=== PATIENT | male | born 1945 | race Caucasian/White ===

== ENCOUNTER → 2018-05-29 08:01 | Outpatient (CLI) | payer MEDICARE, OTHER, SELFPAY ==
--- NOTE | 2018-05-29 | DI.MRI.S_ITS ---
PROCEDURE: MR KNEE LT WO CON INDICATIONS: LEFT KNEE PAIN TECHNIQUE: Noncontrast sagittal PD fast spin echo and T2 fast spin echo with fat saturation, sagittal 3-D FLASH with fat saturation; coronal T1 spin echo and PD fast spin echo with fat saturation, and axial PD fast spin echo with fat saturation through the knee. COMPARISON: None. FINDINGS: Image quality: Excellent. Menisci: Lateral meniscus appears intact. Complex macerated tear involving the posterior root, horn and body of the medial meniscus is seen. Cruciate ligaments: The anterior and posterior cruciate ligaments appear intact. Medial structures: The medial collateral ligament appears intact. The posterior oblique ligament, semimembranosus tendon insertions, oblique popliteal ligament, and meniscocapsular junction appear intact. Visualized portions of the pes anserinus tendons appear normal. No abnormal bursal fluid. Lateral structures: The lateral collateral ligament, long and short heads of the biceps femoris tendon appear intact. The popliteus tendon appears normal; the popliteofibular ligament appears intact. The posterosuperior and anteroinferior popliteomeniscal fascicles appear intact. The arcuate and fabellofibular ligaments appear intact, on either side of the lateral inferior geniculate artery. Iliotibial band appears normal. Anterior structures: The quadriceps tendon appears intact. There is thickening of the patellar tendon. Patellar alignment is normal. No femoral trochlear dysplasia or ventral trochlear prominence. No edema in the infrapatellar fat pad. Bones and cartilage: No bone marrow contusions or fractures. Within the medial compartment, there is diffuse partial-thickness loss of the femoral and tibial articular cartilage with near full-thickness involvement of the tibial cartilage peripherally. Within the lateral compartment, no definite focal articular cartilage defect is seen. Within the patellofemoral compartment, there's diffuse surface fraying of the patellar and femoral trochlear cartilage. Joint space: There is physiologic knee joint fluid. Small Wade's cyst. IMPRESSION: Poorly defined medial meniscal tear which involves the posterior root, horn and body. Patellar tendinopathy. Mild degenerative joint disease as above. Small Wade cyst. Dictated by: Parminder Goddard M.D. on 05/29/2018 at 15:06 Approved by: Parminder Goddard M.D. on 05/29/2018 at 15:18
== END ==
PROVIDERS: PCP Family Medicine; Visit Provider Orthopaedic Surgery
DX: S83.232A Complex tear of medial meniscus, current injury, left knee, initial encounter (principal); M25.562 Pain in left knee; M17.12 Unilateral primary osteoarthritis, left knee; M71.22 Synovial cyst of popliteal space [Baker], left knee; M67.864 Other specified disorders of tendon, left knee
CPT/HCPCS: 73721

== ENCOUNTER → 2020-06-07 11:19 | Outpatient (CLI) | payer MEDICARE, OTHER, SELFPAY ==
[2020-06-07 12:22] LABS: Alanine Aminotransferase 41 IU/L (<50); Albumin 4.2 g/dL (3.5-5.0); Albumin Globulin Ratio 1.4 (1.0-2.8); Alkaline Phosphatase 72 U/L (38-126); Aspartate Aminotransferase 41 IU/L (17-59); BUN Creatinine Ratio 26.1 (6-22); Bilirubin Total 0.8 mg/dL (0.2-1.3); Blood Urea Nitrogen 24 mg/dL (9-20); Calcium 9.1 mg/dL (8.4-10.2); Carbon Dioxide 27 mmol/L (22-32); Chloride 105 mmol/L (98-107); Cholesterol 138 mg/dL (140-199); Estimated Glomerular Filt Rate > 60.0 mL/min (>60); Glucose 89 mg/dL (80-110); HDL Cholesterol 32 mg/dL (40-60); HEMOLYSIS < 15 (0-50); LDL Cholesterol Calculated 87 mg/dL (<100); Potassium 4.4 mmol/L (3.4-5.1); Sodium 138 mmol/L (137-145); Total Protein 7.2 g/dL (6.3-8.2); Triglycerides 96 mg/dL (35-150)
== END ==
PROVIDERS: PCP Family Medicine; Referring Provider Internal Medicine Cardiovascular Disease; Visit Provider Internal Medicine Cardiovascular Disease
DX: Z13.220 Encounter for screening for lipoid disorders (principal); R00.2 Palpitations; I47.1 Supraventricular tachycardia; I49.3 Ventricular premature depolarization
CPT/HCPCS: 36415; 80053; 80061

== ENCOUNTER → 2022-05-02 17:52 | Outpatient (CLI) | payer MEDICARE, OTHER, SELFPAY ==
--- NOTE | 2022-05-02 | DI.MRI.S_ITS ---
PROCEDURE: MR ELBOW LT W CON INDICATIONS: Pain in left elbow TECHNIQUE: Noncontrast coronal proton density fast spin echo and T2 fast spin echo with fat saturation, axial and sagittal T1 spin echo and T2 fast spin echo with fat saturation through the elbow. COMPARISON: None. FINDINGS: Image quality: Excellent. Lateral structures: The lateral ulnar collateral ligament and radial collateral ligament both appear intact. The overlying common extensor tendon also appears normal. Medial structures: The ulnar collateral ligament appears thickened with intrasubstance T2 hyperintense signal. The overlying common flexor tendon also appears thickened with intrasubstance T2 hyperintense signal.. The ulnar nerve appears normal in size and signal within the cubital tunnel. Anterior structures: There is full-thickness rupture of distal biceps tendon at its insertion on proximal radius with up to 7.7 cm proximal retraction of torn tendon fibers and large amount of surrounding fluid. Ruptured lacertus fibrosus is also noted. The brachialis tendon is intact. The median and radial neurovascular bundles appear normal; no focal muscle atrophy to suggest nerve impingement. Posterior structures: The conjoint triceps tendon from the long and lateral heads appears intact. The medial head of the triceps tendon also appears normal, with direct muscle insertion onto the olecranon. No olecranon bursal fluid. Bone and cartilage: Elbow joint osteoarthritic changes are seen with joint space narrowing, subchondral sclerosis and marginal osteophyte formation. No bone marrow contusions or fractures. No osteochondral injuries. IMPRESSION: 1. Full-thickness rupture of distal biceps tendon at its insertion on proximal radius with up to 7.7 cm proximal retraction of torn tendon fibers and large amount of surrounding fluid. Suggestion of ruptured lacertus fibrosus. 2. Suggestion of mild medial epicondylitis with tendinosis and low-grade partial-thickness tear involving common flexor tendon origin and sprain/low-grade partial-thickness tear involving ulnar collateral ligament. 3. 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 No fracture or dislocation. Small amount of joint fluid. No osteochondral injuries. Dictated by: Gerardo Alanis M.D. on 05/03/2022 at 8:45 Approved by: Gerardo Alanis M.D. on 05/03/2022 at 8:53
== END ==
PROVIDERS: PCP Family Medicine; Referring Provider Orthopaedic Surgery; Visit Provider Orthopaedic Surgery
DX: S46.212A Strain of muscle, fascia and tendon of other parts of biceps, left arm, initial encounter (principal); M19.022 Primary osteoarthritis, left elbow; M25.522 Pain in left elbow
CPT/HCPCS: 73221

== ENCOUNTER → 2022-06-15 09:30 | Outpatient (CLI) | payer MEDICARE, OTHER, SELFPAY ==
[2022-06-15 12:47] LABS: BUN Creatinine Ratio 26.5 (6-22); Blood Urea Nitrogen 30 mg/dL (9-20); Carbon Dioxide 28 mmol/L (22-32); Chloride 105 mmol/L (98-107); Cholesterol 140 mg/dL (140-199); Estimated Glomerular Filt Rate > 60 mL/min (>60); Glucose 85 mg/dL (80-110); HDL Cholesterol 33 mg/dL (40-60); HEMOLYSIS < 15 (0-50); LDL Cholesterol Calculated 93 mg/dL (<100); Potassium 4.4 mmol/L (3.4-5.1); Sodium 139 mmol/L (137-145); Triglycerides 69 mg/dL (35-150)
== END ==
PROVIDERS: PCP Family Medicine; Referring Provider Nurse Practitioner Family; Visit Provider Nurse Practitioner Family
DX: I47.1 Supraventricular tachycardia (principal); I70.90 Unspecified atherosclerosis; R00.2 Palpitations; I49.3 Ventricular premature depolarization
CPT/HCPCS: 36415; 80048; 80061

== ENCOUNTER → 2024-06-20 09:57 | Outpatient (CLI) | payer MEDICARE, OTHER, SELFPAY ==
[2024-06-20 12:26] LABS: BUN Creatinine Ratio 22.7 (6-22); Blood Urea Nitrogen 25 mg/dL (9-20); Calcium 9.3 mg/dL (8.4-10.2); Carbon Dioxide 25 mmol/L (22-32); Chloride 106 mmol/L (98-107); Estimated Glomerular Filt Rate > 60 mL/min (>60); Glucose 91 mg/dL (80-110); HEMOLYSIS < 15 (0-50); Potassium 4.3 mmol/L (3.4-5.1); Sodium 139 mmol/L (137-145)
== END ==
PROVIDERS: PCP Family Medicine; Referring Provider Nurse Practitioner; Visit Provider Nurse Practitioner
DX: R00.2 Palpitations (principal)
CPT/HCPCS: 36415; 80048